=== PATIENT | male | born 2000 | race Hispanic/Latino ===

== ENCOUNTER 2022-04-03 02:12 | Inpatient (IN) | payer SELFPAY ==
[2022-04-03] MEDS ORDERED: ONDANSETRON 4 MG/2 ML VIAL ONE ×2 (03:09→18:10)
[2022-04-03] MEDS ORDERED: ACETAMINOPHEN 325 MG TABLET ONE (03:09)
[2022-04-03] MEDS ORDERED: MORPHINE 4 MG/ML SYR ONE (03:09)
[2022-04-03] MEDS ORDERED: NA CHLORIDE 0.9% 2,000 ML ONE (03:09)
[2022-04-03 03:10] LABS: Absolute Lymphocytes (CBC) 0.5 K/uL (0.7-4.9); Hematocrit 45.6 % (39.6-49.0); Lymphocytes % 3.8 % (15.3-44.8); MCV 89.4 fL (80-100); MPV 7.6 fL (7.6-11.3)
[2022-04-03] MEDS ORDERED: PIPERACIL/TAZO 3.375 GM VIAL IV ONE (03:10)
[2022-04-03] MEDS ORDERED: NA CHLORIDE 0.9% 100 ML IV ONE (03:10)
[2022-04-03] MEDS ORDERED: FAMOTIDINE 20 MG/2 ML VIAL IV ONE (03:10)
[2022-04-03 03:23] LABS: Urine Blood 1+ (Negative); Urine Glucose Negative (Negative); Urine Protein 2+ (Negative); Urine Specific Gravity 1.015 (1.005-1.030); Urine pH 6.5 (5.0-7.0)
[2022-04-03 03:27] LABS: Albumin 3.6 g/dL (3.4-5.0); Bilirubin Total 1.9 mg/dL (0.2-1.0); Potassium 3.4 mmol/L (3.5-5.1); Protein, Total 7.6 g/dL (6.4-8.2)
[2022-04-03 03:51] LABS: Urine Bacteria <20 /HPF (<20)
[2022-04-03 03:55] LABS: SARS-CoV-2 Antigen Rapid Res Negative (Negative)
--- NOTE | 2022-04-03 04:39 | ER ---
Nurse's Notes [facility] Name: Vickey Corley Age: 21 yrs Sex: Male : 2000 Arrival Date: 04/03/2022 Time: 02:15 Bed 15 Private MD: Diagnosis: Fever, unspecified;Acute appendicitis with generalized peritonitis;Abdominal pain, Generalized Presentation: 04/03 02:50 Chief complaint: Friend and/or Co-Worker states: He started having abdominal pain on jb4 the . It has progressively gotten worse. He started having diarrhea yesterday and now he is saying it is hurts to walk or move. Coronavirus screen: At this time, the client does not indicate any symptoms associated with coronavirus-19. Ebola Screen: No symptoms or risks identified at this time. Initial Sepsis Screen: Does the patient meet any 2 criteria? RR > 20 per min. HR > 90 bpm. Yes Does the patient have a suspected source of infection? Yes: Acute abdominal pain If YES to both, name of provider notified: Marquez Ruff MD Risk Assessment: Do you want to hurt yourself or someone else? Patient reports no desire to harm self or others. Onset of symptoms was March 26, 2022. Transition of care: patient was not received from another setting of care. 02:50 Method Of Arrival: Ambulatory jb4 02:50 Acuity: MAIA 2 jb4 Historical: - Allergies: 02:52 No Known Allergies; jb4 - Home Meds: 02:52 None [Active]; jb4 - PMHx: 02:52 None; jb4 - PSHx: 02:52 None; jb4 - Immunization history:: Adult Immunizations up to date, Client reports having NOT received the Covid vaccine. - Social history:: Smoking status: Patient denies any tobacco usage or history of. Patient/guardian denies using alcohol, street drugs. - Family history:: not pertinent. Screenin:[address] [facility] ED Fall Risk Assessment (Adult) History of falling in the last 3 months, jb4 including since admission No falls in past 3 months (0 pts) Confusion or Disorientation No (0 pts) Intoxicated or Sedated No (0 pts) Impaired Gait No (0 pts) Mobility Assist Device Used No (0 pt) Altered Elimination No (0 pt) Score/Fall Risk Level 0 - 2 = Low Risk Oriented to surroundings, Maintained a safe environment. Abuse screen: Denies threats or abuse. Nutritional screening: No deficits noted. Tuberculosis screening: No symptoms or risk factors identified. Assessment: 02:55 Reassessment: ED physician denies need for cultures at this time. jb4 02:55 General: Appears in no apparent distress. uncomfortable, Behavior is calm, cooperative, jb4 appropriate for age. Pain: Complains of pain in right lower quadrant Pain does not radiate. Pain currently is 10 out of 10 on a pain scale. Neuro: Level of Consciousness is awake, alert, obeys commands, Oriented to person, place, time, situation. Cardiovascular: Patient's skin is warm and dry. Respiratory: Airway is patent Respiratory effort is even, labored, Respiratory pattern is symmetrical, tachypnea. GI: Abdomen is flat, distended, Bowel sounds present X 4 quads. Abd is soft and non tender in right upper quadrant and left upper quadrant Abd is soft in right lower quadrant and left lower quadrant Abdomen is tender to palpation in right lower quadrant and left lower quadrant. 02:55 : No signs and/or symptoms were reported regarding the genitourinary system. EENT: No jb4 signs and/or symptoms were reported regarding the EENT system. Derm: Skin is intact, Skin is pink, warm \T\ dry. Musculoskeletal: Circulation, motion, and sensation intact. Range of motion: intact in all extremities. 04:01 Reassessment: Patient appears in no apparent distress at this time. Patient and/or jb4 family updated on plan of care and expected duration. Pain level reassessed. Patient is alert, oriented x 3, equal unlabored respirations, skin warm/dry/pink. 05:00 Reassessment: Patient appears in no apparent distress at this time. Patient and/or jb4 family updated on plan of care and expected duration. Pain level reassessed. Patient is alert, oriented x 3, equal unlabored respirations, skin warm/dry/pink. Vital Signs: 02:50 BP 122 / 82; Pulse 126; Resp 32; Temp 100.6(O); Pulse Ox 97% on R/A; Weight 77 kg (M); jb4 Height 5 ft. 6 in. (170 cm) (R); Pain 8/10; 04:01 BP 117 / 74; Pulse 113; Resp 22; Temp 99.5(O); Pulse Ox 97% on R/A; jb4 05:00 BP 105 / 63; Pulse 102; Resp 19; Temp 99.7(TE); Pulse Ox 98% on R/A; jb4 02:50 Body Mass Index 26.64 (77.00 kg, 170 cm) jb4 ED Course: 02:15 Patient arrived in ED. ja2 02:17 Marquez Ruff MD is Attending Physician. [facility] 02:52 Triage completed. jb4 02:52 Dima Awad, RN is Primary Nurse. jb4 02:52 Arm band placed on right wrist. jb4 02:55 Patient has correct armband on for positive identification. Placed in gown. Bed in low jb4 position. Call light in reach. Side rails up X 1. Client placed on continuous cardiac and pulse oximetry monitoring. NIBP monitoring applied. satellite project site monitor on. 03:00 Initial lab(s) drawn, by nc, sent to lab. Inserted saline lock: 20 gauge in right jb4 antecubital area, using aseptic technique. Blood collected. 03:11 Lipase Sent. jb4 03:11 CMP Sent. jb4 03:11 CBC with Diff Sent. jb4 03:30 SARS RAPID Sent. jb4 03:30 Urine Microscopic Only Sent. jb4 03:40 Chest Single View XRAY In Process Unspecified. EDMS 04:03 CT Abd/Pelvis - IV Contrast Only In Process Unspecified. EDMS 04:37 Jeovanny Lynn MD is Hospitalizing Provider. [facility] 05:05 No provider procedures requiring assistance completed. Patient admitted, IV remains in jb4 place. Administered Medications: 03:18 Drug: Tylenol 650 mg Route: PO; jb4 04:50 Follow up: Response: No adverse reaction; Marked relief of symptoms; Temperature is jb4 decreased 03:30 Drug: NS 0.9% 1000 ml Route: IV; Rate: 1 bolus; Site: right antecubital; jb4 04:50 Follow up: Response: No adverse reaction; IV Status: Completed infusion; IV Intake: jb4 1000ml 03:30 Drug: Pepcid (famotidine) 20 mg Route: IVP; Site: right antecubital; jb4 04:00 Follow up: Response: No adverse reaction jb4 03:30 Drug: Zofran (Ondansetron) 4 mg Route: IVP; Site: right antecubital; jb4 04:00 Follow up: Response: No adverse reaction jb4 03:30 Drug: morphine 4 mg Route: IVP; Infused Over: 4 mins; Site: right antecubital; jb4 04:50 Follow up: Response: No adverse reaction; Marked relief of symptoms; Pain is decreased; jb4 RASS: Alert and Calm (0) 03:30 Drug: Zosyn (piperacillin-tazobactam) 3.375 grams Route: IVPB; Infused Over: 60 mins; jb4 Site: right antecubital; 04:50 Follow up: Response: No adverse reaction; IV Status: Completed infusion; IV Intake: jb4 100ml 04:46 Drug: NS 0.9% 1000 ml Route: IV; Rate: 1 bolus; Site: right antecubital; jb4 05:07 Follow up: Response: No adverse reaction; IV Status: Infusion continued upon admission jb4 04:56 Drug: NS 0.9% with KCl 20 mEq/L 1000 ml Route: IV; Rate: 125 ml/hr; Site: right jb4 antecubital; 05:07 Follow up: Response: No adverse reaction; IV Status: Infusion continued upon admission jb4 Medication: 02:55 VIS not applicable for this client. jb4 Intake: 04:50 IV: 100ml; Total: 100ml. jb4 04:50 IV: 1000ml; Total: 1100ml. jb4 Outcome: 04:38 Decision to Hospitalize by Provider. yvan 05:05 Admitted to Med/surg accompanied by tech, via wheelchair, room 203, with chart, Report jb4 called to CLEVE Cortez 05:05 Condition: stable 05:05 Discharge instructions given to patient, Instructed on the need for admit, Demonstrated understanding of instructions. 05:19 Patient left the ED. jb4 Signatures: Dispatcher [employer] EDMarquez Bautista MD MD cha Bryson, James, RN RN jb4 Caren Montero Corrections: (The following items were deleted from the chart) 05:04 05:00 BP 105 / 63; Pulse 102bpm; Resp 19bpm; Pulse Ox 98% RA; jb4 jb4
--- NOTE | 2022-04-03 04:39 | EDPHYS ---
Physician Documentation [facility] Name: Vickey Corley Age: 21 yrs Sex: Male : 2000 Arrival Date: 04/03/2022 Time: 02:15 Bed 15 Private MD: ED Physician Marquez Ruff HPI: 04/03 02:47 This 21 yrs old Male presents to ER via Unassigned with complaints of yvan Abdominal Pain. 02:47 The patient presents with abdominal pain in the upper abdomen, in the lower abdomen, yvan abdominal distention in the upper abdomen, in the lower abdomen. Onset: The symptoms/episode began/occurred 8 hour(s) ago. The symptoms do not radiate. Associated signs and symptoms: Pertinent positives: nausea, vomiting. The symptoms are described as constant, steady. Modifying factors: The symptoms are alleviated by nothing, remaining still, the symptoms are aggravated by movement, pressure. Severity of pain: At its worst the pain was moderate in the emergency department the pain is actually worse moderately. The patient has not experienced similar symptoms in the past. Historical: - Allergies: 02:52 No Known Allergies; jb4 - Home Meds: 02:52 None [Active]; jb4 - PMHx: 02:52 None; jb4 - PSHx: 02:52 None; jb4 - Immunization history:: Adult Immunizations up to date, Client reports having NOT received the Covid vaccine. - Social history:: Smoking status: Patient denies any tobacco usage or history of. Patient/guardian denies using alcohol, street drugs. - Family history:: not pertinent. ROS: 02:47 Constitutional: Negative for fever, chills, and weight loss, Eyes: Negative for injury, yvan pain, redness, and discharge, ENT: Negative for injury, pain, and discharge, Neck: Negative for injury, pain, and swelling, Cardiovascular: Negative for chest pain, palpitations, and edema, Respiratory: Negative for shortness of breath, cough, wheezing, and pleuritic chest pain, Back: Negative for injury and pain, : Negative for injury, bleeding, discharge, and swelling, MS/Extremity: Negative for injury and deformity, Skin: Negative for injury, rash, and discoloration, Neuro: Negative for headache, weakness, numbness, tingling, and seizure, Psych: Negative for depression, anxiety, suicide ideation, homicidal ideation, and hallucinations, Allergy/Immunology: Negative for hives, rash, and allergies, Endocrine: Negative for neck swelling, polydipsia, polyuria, polyphagia, and marked weight changes. 02:47 Abdomen/GI: Positive for abdominal pain, of the right upper quadrant, left upper quadrant, right lower quadrant and left lower quadrant. Exam: 02:47 Constitutional: This is a well developed, well nourished patient who is awake, alert, yvan and in no acute distress. Head/Face: Normocephalic, atraumatic. Eyes: Pupils equal round and reactive to light, extra-ocular motions intact. Lids and lashes normal. Conjunctiva and sclera are non-icteric and not injected. Cornea within normal limits. Periorbital areas with no swelling, redness, or edema. ENT: Nares patent. No nasal discharge, no septal abnormalities noted. Tympanic membranes are normal and external auditory canals are clear. Oropharynx with no redness, swelling, or masses, exudates, or evidence of obstruction, uvula midline. Mucous membranes moist. Neck: Trachea midline, no thyromegaly or masses palpated, and no cervical lymphadenopathy. Supple, full range of motion without nuchal rigidity, or vertebral point tenderness. No Meningismus. Chest/axilla: Normal chest wall appearance and motion. Nontender with no deformity. No lesions are appreciated. Cardiovascular: Regular rate and rhythm with a normal S1 and S2. No gallops, murmurs, or rubs. Normal PMI, no JVD. No pulse deficits. Respiratory: Lungs have equal breath sounds bilaterally, clear to auscultation and percussion. No rales, rhonchi or wheezes noted. No increased work of breathing, no retractions or nasal flaring. Back: No spinal tenderness. No costovertebral tenderness. Full range of motion. Male : Normal genitalia with no discharge or lesions. Skin: Warm, dry with normal turgor. Normal color with no rashes, no lesions, and no evidence of cellulitis. MS/ Extremity: Pulses equal, no cyanosis. Neurovascular intact. Full, normal range of motion. Neuro: Awake and alert, GCS 15, oriented to person, place, time, and situation. Cranial nerves II-XII grossly intact. Motor strength 5/5 in all extremities. Sensory grossly intact. Cerebellar exam normal. Normal gait. Psych: Awake, alert, with orientation to person, place and time. Behavior, mood, and affect are within normal limits. 02:47 Abdomen/GI: Inspection: abdomen appears normal, Bowel sounds: normal, Palpation: moderate abdominal tenderness, in all quadrants, Liver: no appreciated palpable abnormalities, Hernia: not appreciated. 03:28 ECG was reviewed by the Attending Physician. [facility] Vital Signs: 02:50 BP 122 / 82; Pulse 126; Resp 32; Temp 100.6(O); Pulse Ox 97% on R/A; Weight 77 kg (M); jb4 Height 5 ft. 6 in. (170 cm) (R); Pain 8/10; 04:01 BP 117 / 74; Pulse 113; Resp 22; Temp 99.5(O); Pulse Ox 97% on R/A; jb4 05:00 BP 105 / 63; Pulse 102; Resp 19; Temp 99.7(TE); Pulse Ox 98% on R/A; jb4 02:50 Body Mass Index 26.64 (77.00 kg, 170 cm) jb4 MDM: 02:18 Patient medically screened. [facility] 02:52 Differential diagnosis: appendicitis, bowel obstruction, cholecystitis, Cholelithiasis, yvan diverticulitis, gastritis, non-specific abd pain, pancreatitis, Peptic Ulcer Disease, Peritonitis, Pyelonephritis, urinary tract infection. Data reviewed: vital signs, nurses notes, lab test result(s), radiologic studies, CT scan, plain films. Data interpreted: quality assurance monitor body: rate is 126 beats/min, rhythm is regular, Pulse oximetry: on room air is 97 %. Test interpretation: by ED physician or midlevel provider: plain radiologic studies. Counseling: I had a detailed discussion with the patient and/or guardian regarding: the historical points, exam findings, and any diagnostic results supporting the discharge/admit diagnosis, lab results, radiology results. 04/03 02:47 Order name: CBC with Diff; Complete Time: 03:24 [facility] 04/03 02:47 Order name: CMP; Complete Time: 03:45 [facility] 04/03 02:47 Order name: Lipase; Complete Time: 03:45 [facility] 04/03 02:47 Order name: Urine Microscopic Only; Complete Time: 04:16 [facility] 04/03 02:54 Order name: SARS RAPID; Complete Time: 04:16 [facility] 04/03 03:23 Order name: Urine Dipstick-Ancillary; Complete Time: 03:24 EDMS 04/03 02:47 Order name: CT Abd/Pelvis - IV Contrast Only [facility] 04/03 02:54 Order name: Chest Single View XRAY [facility] 04/03 04:47 Order name: Urine Culture [facility] 04/03 02:47 Order name: IV Saline Lock; Complete Time: 03:11 [facility] 04/03 02:47 Order name: Labs collected and sent; Complete Time: 03:11 [facility] 04/03 02:47 Order name: Urine Dipstick-Ancillary (obtain specimen); Complete Time: 03:51 [facility] 04/03 02:54 Order name: EKG; Complete Time: 02:54 [facility] 04/03 02:54 Order name: EKG - Nurse/Tech; Complete Time: 03:18 [facility] 04/03 04:42 Order name: NPO; Complete Time: 04:46 sb4 EC:28 Rate is 125 beats/min. Rhythm is regular. QRS [place] is Normal. MI interval is normal. [facility] QRS interval is normal. QT interval is normal. No Q waves. T waves are Normal. No ST changes noted. Clinical impression: Sinus tachycardia and No evidence of ischemia. Interpreted by me. Reviewed by me. Administered Medications: 03:18 Drug: Tylenol 650 mg Route: PO; jb4 04:50 Follow up: Response: No adverse reaction; Marked relief of symptoms; Temperature is jb4 decreased 03:30 Drug: NS 0.9% 1000 ml Route: IV; Rate: 1 bolus; Site: right antecubital; jb4 04:50 Follow up: Response: No adverse reaction; IV Status: Completed infusion; IV Intake: jb4 1000ml 03:30 Drug: Pepcid (famotidine) 20 mg Route: IVP; Site: right antecubital; jb4 04:00 Follow up: Response: No adverse reaction jb4 03:30 Drug: Zofran (Ondansetron) 4 mg Route: IVP; Site: right antecubital; jb4 04:00 Follow up: Response: No adverse reaction jb4 03:30 Drug: morphine 4 mg Route: IVP; Infused Over: 4 mins; Site: right antecubital; jb4 04:50 Follow up: Response: No adverse reaction; Marked relief of symptoms; Pain is decreased; jb4 RASS: Alert and Calm (0) 03:30 Drug: Zosyn (piperacillin-tazobactam) 3.375 grams Route: IVPB; Infused Over: 60 mins; jb4 Site: right antecubital; 04:50 Follow up: Response: No adverse reaction; IV Status: Completed infusion; IV Intake: jb4 100ml 04:46 Drug: NS 0.9% 1000 ml Route: IV; Rate: 1 bolus; Site: right antecubital; jb4 05:07 Follow up: Response: No adverse reaction; IV Status: Infusion continued upon admission jb4 04:56 Drug: NS 0.9% with KCl 20 mEq/L 1000 ml Route: IV; Rate: 125 ml/hr; Site: right jb4 antecubital; 05:07 Follow up: Response: No adverse reaction; IV Status: Infusion continued upon admission jb4 Disposition Summary: 04/03/22 04:38 Hospitalization Ordered Hospitalization Status: Observation yvan Provider: Jeovanny Lynn cha Location: Telemetry/MedSurg (observation) yvan Condition: Fair yvan Problem: new yvan Symptoms: have improved yvan Bed/Room Type: Standard yvan Room Assignment: 203(04/03/22 04:46) mw Diagnosis - Fever, unspecified yvan - Acute appendicitis with generalized peritonitis yvan - Abdominal pain, Generalized yvan Forms: - Medication Reconciliation Form yvan - SBAR form yvan Signatures: Dispatcher [employer] EDNallely Mejia RN RN Marquez Carlin MD MD cha Bryson, James, RN RN jb4 Katy Willoughby PA-C PA-C sb4 Corrections: (The following items were deleted from the chart) 04:46 04:38 yvan mw
[2022-04-03] MEDS ORDERED: NS KCL 20MEQ 1,000 ML IV ONE (04:55)
[2022-04-03] MEDS ORDERED: ACETAMINOPHEN 325 MG TABLET PO PRN (05:25)
[2022-04-03] MEDS ORDERED: ONDANSETRON 4 MG/2 ML VIAL IV PRN (05:25)
[2022-04-03] MEDS: D5 0.45 NS 1,000 ML IV SCH ×3 (05:55→21:25)
[2022-04-03 06:36] VITALS: BMI 27.3
[2022-04-03] MEDS ORDERED: INFLUENZA VACCINE (for 6+ mo) 0.5 ML DOSE IMVAC ONE (08:00)
[2022-04-03 10:07] LABS: Urine Bacteria <20 /HPF (<20); Urine Bilirubin NEGATIVE (Negative); Urine Blood Negative (Negative); Urine Clarity Clear (Clear); Urine Color Yellow (Yellow); Urine Glucose NEGATIVE (Negative); Urine Mucus Slight /HPF (None Seen); Urine Protein TRACE (Negative); Urine RBC <5 /HPF (None Seen); Urine Urobilinogen 1+ (Normal)
[2022-04-03] MEDS: PIPER TAZO 3.375 GM in NA CHLORIDE 0.9% 100 ML IV SCH ×2 (10:33→18:16)
[2022-04-03] MEDS: FAMOTIDINE 20 MG/2 ML VIAL IV SCH ×2 (10:34→20:47)
[2022-04-03] MEDS: MORPHINE 4 MG/ML SYR IV PRN (10:42)
[2022-04-03 10:43] LABS: Specific Gravity > 1.030 (1.005-1.030)
[2022-04-03] MEDS ORDERED: Ringers Lactate 1,000 ML IV ONE ×2 (17:19→19:19)
[2022-04-03] MEDS ORDERED: FENTANYL CITR 100 MCG/2 ML ONE (18:08)
[2022-04-03] MEDS ORDERED: MIDAZOLAM HCL 2 MG/2 ML INJ ONE (18:08)
[2022-04-03] MEDS ORDERED: LIDOCAINE 1% MPF 5 ML VIAL ONE (18:08)
[2022-04-03] MEDS ORDERED: dexAMETHasone 4 MG/ML VIAL ONE (18:08)
[2022-04-03] MEDS ORDERED: propofoL 200 MG/20 ML VIAL IV ONE (18:08)
[2022-04-03] MEDS ORDERED: GLYCOPYRROLATE 0.2 MG/ML SYR ONE (18:09)
[2022-04-03] MEDS ORDERED: KETOROLAC 30 MG/ML INJ ONE (18:10)
[2022-04-03] MEDS ORDERED: NEOSTIGMINE 1 MG/ML -10 ML VIAL ONE (18:10)
[2022-04-03] MEDS ORDERED: ROCURONIUM 50 MG/5 ML VIAL IV ONE (18:15)
--- NOTE | 2022-04-03 19:17 | P.BOP ---
Preoperative diagnosis: acute appendicitis Postoperative diagnosis: acute suppurative appendicitis Primary procedure: Laparoscopic appendectomy Estimated blood loss: <10cc Specimen: donita Findings: as above Anesthesia: General Drain(s): LIZETH drain Transferred to: Recovery Room Condition: Good
[2022-04-03] MEDS ORDERED: HYDROCODONE/APAP 5/325 MG TAB PO PRN (19:19)
[2022-04-04] MEDS: PIPER TAZO 3.375 GM in NA CHLORIDE 0.9% 100 ML IV SCH ×3 (00:22→23:00)
--- NOTE | 2022-04-04 00:23 | OP ---
Date of Procedure: 04/03/2022 Surgeon: Jeovanny Lynn MD Preoperative Diagnosis: Acute appendicitis. Postoperative Diagnosis: Acute suppurative appendicitis. Procedure: Laparoscopic appendectomy. Estimated Blood Loss: Less than 10 cc. Anesthesia: General plus local. Drains: LIZETH #10. Indications: This is the case of a 21-year-old patient, who comes to us with acute appendicitis. Th e benefits, alternatives, and risks of laparoscopic possible open appendectomy fully explained which include, but not limited to infection, bleeding, damage to adjacent structures, anesthesia complicati on, [place], and even . He also understood this may not relieve symptoms. He might need more than o ne surgical intervention. He understood, signed a consent. Procedure In Detail: Patient was brought to the operating room, placed in supine position. Anesthes ia was done without complication. Abdominal area was prepped and draped in sterile fashion. Marcain e 0.5% was injected for local anesthetic, followed by sharp incision of the skin in the infraumbilica l region. Incision was carried down to fascia, which was opened under direct vision. Peritoneum was encountered opened under direct vision. Vicryl #1 placed inside the fascia. Gloria trocar was care fully introduced. Pneumoperitoneum was obtained. I placed 2 more trocars, 5 mm each one of them, 1 in the suprapubic area, another one in the left lower quadrant under the same technique which consist ed of local anesthetic, sharp incision of the skin, and introduction of the trocars under direct visi on. This allowed me to visualize the area of appendix shows the patient to have a suppurative append icitis. The base of the appendix seems to be spared from the disease. So, we transected the base of the appendix with Endo-RERE 45 mm nonvascular and then we transected the mesoappendix with an Endo-GI A 45 mm vascular. Appendix removed from abdominal cavity using EndoCatch through the umbilical incis ion. The area was inspected once again. Due to the suppurative condition of this appendix, a left J P drain coming out through 1 of the openings of the trocar site. This LIZETH drain was secured in place with 3-0 nylon. Patient tolerated the procedure well. Patient on his way to recovery in stable cond ition. HM/MODL Voice ID: [id number] Report ID: [id number]
--- NOTE | 2022-04-04 02:18 | HP ---
Date of Admission: 04/03/2022 Diagnosis: Acute appendicitis. History Of Present Illness: This is the case of a 21-year-old patient who comes to the ER complainin g of abdominal pain since yesterday. Came this morning since it was not getting better, who has rece ived imaging and blood work and found to have acute appendicitis, so surgical evaluation was obtained . He denies any trauma, any dysuria, any hematuria, hematochezia, or melena. No recent traveling ou t of the country. No family member sick at home. Review of Systems: Ten points otherwise unremarkable. Past Medical History: None. Allergies: NONE. Past Surgical History: None. Social History: He does not smoke. He does not drink alcohol. Review of Systems: As above. Physical Examination: General: The patient is awake, alert. HEENT: Pupils are equal and reactive. Anicteric. Neck: Supple. Chest: Clear. Heart: S1, S2. Abdomen: Right lower quadrant tenderness with Rovsing and psoas signs positive. Genitalia: Deferred. Rectal: Deferred. Extremities: Good capillary refill. Neuro: Cranial nerves 2 through 12 grossly within normal limits. Laboratory Data: Blood work shows WBC count of 12, with hemoglobin of 15, potassium 3.4, creatinine is 0.8, total bilirubin of 1.9. UA shows a nitrite negative. CAT scan of the abdomen and pelvis leonel wing acute appendicitis. Assessment: This is a 21-year-old patient with acute appendicitis. Emergent laparoscopy possible op en appendectomy explained to the patient with benefits, alternatives, and risks including, but not li mited to infection, bleeding, damage to adjacent structures, anesthesia complications, abscess, [place], a nd even . He also understands this may not relieve the symptoms. He might need more than one s urgical intervention. He will sign a consent. MIGUEL/AALIYAH Voice ID: [id number]
[2022-04-04 03:44] LABS: Absolute Lymphocytes (CBC) 0.4 K/uL (0.7-4.9); Hematocrit 39.3 % (39.6-49.0); Lymphocytes % 3.6 % (15.3-44.8); MCV 89.2 fL (80-100); MPV 7.6 fL (7.6-11.3)
[2022-04-04 03:55] LABS: Albumin 2.7 g/dL (3.4-5.0); Bilirubin Direct 1.2 mg/dL (0-0.2); Bilirubin Total 2.1 mg/dL (0.2-1.0); Potassium 3.9 mmol/L (3.5-5.1); Protein, Total 6.6 g/dL (6.4-8.2)
[2022-04-04] MEDS: D5 0.45 NS 1,000 ML IV SCH ×3 (05:25→21:25)
[2022-04-04] MEDS: FAMOTIDINE 20 MG/2 ML VIAL IV SCH ×2 (08:03→22:58)
--- NOTE | 2022-04-04 16:04 | PN ---
Diagnosis: Status post suppurative appendicitis. Subjective: The patient is doing well. Still with some fevers and also not able to tolerate his t yet and requiring IV pain medications. Objective: Chest: Clear. Abdomen: Soft and depressible. LIZETH serosanguineous. Plan: Ambulation, incentive spirometry. If he tolerates diet by tomorrow and he is afebrile, we george l most likely send him home with p.o. antibiotics once again obtaining his clinical improvement. MIGUEL/AALIYAH Voice ID: [id number] Report ID: [id number]
--- NOTE | 2022-04-04 19:07 | EKG ---
Test Date: 2022-04-03 Test Time: 03:13:23 Lead Cook: RV MEASUREMENT RESULTS: Intervals: Rate: 125 MI: 126 QRSD: 88 QT: 304 QTc: 438 [place]: P: 13 MI: 126 QRS: 114 T: 41 INTERPRETIVE STATEMENTS: Sinus tachycardia Right axis deviation Abnormal ECG No previous ECG available for comparison Electronically Signed On 04-04-22 19:06:37 [employer] by Gregg Conner
[2022-04-05] MEDS: PIPER TAZO 3.375 GM in NA CHLORIDE 0.9% 100 ML IV SCH ×3 (01:00→16:28)
[2022-04-05] MEDS: D5 0.45 NS 1,000 ML IV SCH ×3 (05:34→20:22)
[2022-04-05] MEDS: FAMOTIDINE 20 MG/2 ML VIAL IV SCH ×2 (08:19→20:21)
--- NOTE | 2022-04-05 11:41 | PN ---
Date of Progress Note: 04/05/2022 Diagnoses: History of acute appendicitis, suppurative appendicitis. Subjective: The patient is doing better, although is not able to tolerate diet yet. He is afebrile. No shortness of breath. No chest pain. No bowel movement yet. Objective: Chest: Clear. Abdomen: buggy ladle tender. LIZETH drain serosanguineous. Extremities: Good capillary refill. Laboratory Data: Blood work reviewed with the patient. Plan: He is still unable to tolerate diet, means he cannot take his medications by mouth, so we are going to have to once again slowly try today to ambulate and see if I can break that ileus, so he can start getting diet. Once he has diet and we can switch to p.o. antibiotics, then we will proceed to discharge him home. MIGUEL/AALIYAH Voice ID: [id number] Report ID: [id number]
[2022-04-05] MEDS ORDERED: INFLUENZA VACCINE (for 6+ mo) 0.5 ML DOSE IMVAC ONE (13:00)
--- NOTE | 2022-04-05 20:28 | RAD REPORT ---
EXAM DESCRIPTION: RAD - Chest Single View - 04/03/2022 3:39 am CLINICAL HISTORY: The patient is 21 years old and is Male; ABDOMINAL DISTENTION TECHNIQUE: Frontal view of the chest. COMPARISON: No relevant prior studies available. FINDINGS: Lungs: Unremarkable. No consolidation. Pleural space: Unremarkable. No pneumothorax. Heart: Unremarkable. Mediastinum: Unremarkable. Bones/joints: Unremarkable. IMPRESSION: No acute findings in the chest. Electronically signed by: Cortez Guerrier MD 04/03/2022 4:01 AM [employer] Due to temporary technical issues with the PACS/Fluency reporting system, reports are being signed by the in house radiologists without review as a courtesy to insure prompt reporting. The interpreting radiologist is fully responsible for the content of the report.
--- NOTE | 2022-04-05 20:31 | RAD REPORT ---
EXAM DESCRIPTION: CT - Abdomen Pelvis W Contrast - 04/03/2022 6:34 am ADDENDUM #1 THIS REPORT CONTAINS FINDINGS THAT MAY BE CRITICAL TO PATIENT CARE: Dr. Marquez Ruff stated they a re aware of the findings to Shay Bernard and declined a telephone conference with Dr. Cortez Carlson on 04/03/2022 4:36 AM TECHNICAL DIRECTOR. Electronically signed by: Cortez Guerrier MD 04/03/2022 6:23 AM TECHNICAL DIRECTOR End of Addendum EXAM DESCRIPTION: CT Abdomen and Pelvis With Intravenous Contrast CLINICAL HISTORY: The patient is 21 years old and is Male; Abdominal pain, acute, nonlocalized TECHNIQUE: Axial computed tomography images of the abdomen and pelvis with intravenous contrast. S agittal and coronal reformatted images were created and reviewed. This CT exam was performed using one or more of the following dose reduction techniques: automated exposure control, adjustment of t he mA and/or kV according to patient size, and/or use of iterative reconstruction technique. COMPARISON: No relevant prior studies available. FINDINGS: Lung bases: Unremarkable. No mass. No consolidation. ABDOMEN: Liver: Unremarkable. No mass. Gallbladder and bile ducts: Unremarkable. No calcified stones. No ductal dilation. Pancreas: Unremarkable. No mass. No ductal dilation. Spleen: Unremarkable. No splenomegaly. Adrenals: Unremarkable. No mass. Kidneys and ureters: Unremarkable. No solid mass. No hydronephrosis. Stomach and bowel: Unremarkable. No obstruction. No mucosal thickening. PELVIS: Appendix: Dilated thickened appendix with moderate periappendiceal stranding consistent with acu te appendicitis. No free air. No abscess. Bladder: Diffuse bladder wall thickening. Reproductive: Unremarkable as visualized. ABDOMEN and PELVIS: Intraperitoneal space: Small amount of free fluid in the dependent pelvis. Bones/joints: No acute fracture. No dislocation. Soft tissues: Unremarkable. Vasculature: Unremarkable. No abdominal aortic aneurysm. Lymph nodes: Unremarkable. No enlarged lymph nodes. IMPRESSION: 1. Dilated thickened appendix with moderate periappendiceal stranding consistent with acute appendicitis. No free air. No abscess. 2. Diffuse bladder wall thickening. Correlate with any concern for cystitis, chronic bladder outl et obstruction, or other infiltrative process. 3. Small amount of free fluid in the dependent pelvis. Electronically signed by: Cortez Guerrier MD 04/03/2022 4:36 AM TECHNICAL DIRECTOR Due to temporary technical issues with the PACS/Fluency reporting system, reports are being signed by the in house radiologists without review as a courtesy to insure prompt reporting. The interpreting radiologist is fully responsible for the content of the report.
[2022-04-06] MEDS: PIPER TAZO 3.375 GM in NA CHLORIDE 0.9% 100 ML IV SCH ×2 (01:45→08:33)
[2022-04-06] MEDS: D5 0.45 NS 1,000 ML IV SCH (01:45)
[2022-04-06] MEDS: MORPHINE 4 MG/ML SYR IV PRN (05:21)
[2022-04-06 05:55] VITALS: O2SAT 97
[2022-04-06] MEDS: FAMOTIDINE 20 MG/2 ML VIAL IV SCH (08:33)
[2022-04-06 12:32] VITALS: BP 113/63; TEMP 98.9
== END 2022-04-06 13:50 | disposition home or self-care (01) | DRG 342 ==
LOC: ER 02:12 → 2ND 04:41 → OBSVTOIN 19:20
PROVIDERS: ADMIT Surgery; ATTEND Surgery
PROC: 0DTJ4ZZ Resection of Appendix, Percutaneous Endoscopic Approach (ICD-10-PCS; principal; 2022-04-03 18:00)
DX: K35.80 Unspecified acute appendicitis (principal); K56.699 Other intestinal obstruction unspecified as to partial versus complete obstruction; Z28.310 Unvaccinated for COVID-19; Z20.822 Contact with and (suspected) exposure to COVID-19
CPT/HCPCS: 36415; 71045; 74177; 80048; 80053; 80076; 81001; 81003; 81015; 83690; 85025; 87811; 88304; 93005; 94010; 96365; 96375; 99285; G0378; J1100; J2001; J2250; J2405; J2543; J2704; J2710; J3010; J3480; J7030; J7120; J7799; Q9967

== ENCOUNTER 2022-04-10 11:41 | Emergency (ER) | payer SELFPAY ==
--- NOTE | 2022-04-10 12:04 | EDPHYS ---
Physician Documentation [facility] Name: Vickey Mao Age: 21 yrs Sex: Male : 2000 Arrival Date: 04/10/2022 Time: 11:42 Bed IW1 Private MD: ED Physician Donovan Hilton HPI: 04/10 11:46 This 21 yrs old Male presents to ER via Ambulatory with complaints of post op jmm check. 11:46 The patient presents with abdominal pain. Onset: The symptoms/episode began/occurred jmm gradually. The symptoms do not radiate. Is a 21-year-old male with no chronic medical conditions status post 1 week after laparoscopic appendectomy. Patient has no complaints, denies abdominal pain, denies vomiting, denies fever, denies drainage from his incision sites. Patient states he is here because he does not have insurance to follow-up with general surgery.. Historical: - Allergies: 12:02 No Known Allergies; vg1 - Home Meds: 12:02 None [Active]; vg1 - PMHx: 12:02 None; vg1 - PSHx: 12:02 Appendectomy; vg1 - Immunization history:: Client reports having NOT received the Covid vaccine. - Social history:: Smoking status: Patient denies any tobacco usage or history of. ROS: 11:46 Constitutional: Negative for fever, chills, and weight loss, Cardiovascular: Negative jmm for chest pain, palpitations, and edema, Respiratory: Negative for shortness of breath, cough, wheezing, and pleuritic chest pain, Abdomen/GI: Negative for abdominal pain, nausea, vomiting, diarrhea, and constipation. 11:46 All other systems are negative. Exam: 11:46 Constitutional: This is a well developed, well nourished patient who is awake, alert, jmm and in no acute distress. Head/Face: atraumatic. Eyes: EOMI, no conjunctival erythema appreciated ENT: Moist Mucus Membranes Neck: Trachea midline, Supple Chest/axilla: Normal chest wall appearance and motion. Cardiovascular: Regular rate and rhythm. No edema appreciated Respiratory: Normal respirations, no respiratory distress appreciated 11:46 Skin: General appearance color normal MS/ Extremity: Moves all extremities, no obvious deformities appreciated, no edema noted to the lower extremities Neuro: Awake and alert Psych: Behavior is normal, Mood is normal, Patient is cooperative and pleasant 11:46 Abdomen/GI: Inspection: abdomen appears normal, Palpation: soft, nontender, in all quadrants. Vital Signs: 12:02 BP 128 / 87; Pulse 105; Resp 14; Temp 98.6(O); Pulse Ox 98% ; Weight 74.3 kg; Height 5 vg1 ft. 6 in. (170 cm); Pain 0/10; 12:02 Body Mass Index 25.71 (74.30 kg, 170 cm) vg1 MDM: 11:46 Patient medically screened. rn 12:02 Data reviewed: vital signs, nurses notes. ED course: Social determinants of health. [facility] Administered Medications: No medications were administered Disposition: 17:56 Co-signature as Attending Physician, Donovan Hilton MD. rn Disposition Summary: 04/10/22 12:04 Discharge Ordered Location: Home [facility] Condition: Stable jm Diagnosis - Person with feared health complaint in whom no diagnosis is made jm Followup: jm - With: Private Physician - When: 2 - 3 days - Reason: Recheck today's complaints, Continuance of care, Re-evaluation by your physician Discharge Instructions: - Discharge Summary Sheet jm - Laparoscopic Appendectomy, Adult, Care After [facility] Forms: - Medication Reconciliation Form [facility] - Thank You Letter [facility] - Antibiotic Education [facility] - Prescription Opioid Use [facility] Signatures: Gil Zayas PA PA jmm Nieto, Roman, MD MD rn Aylin Knox RN RN vg1
--- NOTE | 2022-04-10 12:04 | ER ---
Nurse's Notes [facility] Name: Vickey Mao Age: 21 yrs Sex: Male : 2000 Arrival Date: 04/10/2022 Time: 11:42 Bed IW1 Private MD: Diagnosis: Person with feared health complaint in whom no diagnosis is made Presentation: 04/10 11:55 Chief complaint: Patient states: appendectomy on 04/03/[address] Lynn and vg1 was told to follow up. Coronavirus screen: Vaccine status: Patient reports being unvaccinated. Client denies travel out of the [place] in the last 14 days. Ebola Screen: Patient negative for fever greater than or equal to 101.5 degrees Fahrenheit, and additional compatible Ebola Virus Disease symptoms. 11:55 Method Of Arrival: Ambulatory vg1 11:59 Initial Sepsis Screen:. Risk Assessment: Do you want to hurt yourself or someone else? vg1 Patient reports no desire to harm self or others. Onset of symptoms was April 03, 2022. 11:59 Acuity: MAIA 4 vg1 12:02 Initial Sepsis Screen: Does the patient meet any 2 criteria? No. Patient's initial vg1 sepsis screen is negative. Does the patient have a suspected source of infection? No. Patient's initial sepsis screen is negative. Triage Assessment: 12:02 General: Appears in no apparent distress. comfortable, Behavior is calm, cooperative. vg1 Pain: Denies pain. Cardiovascular: Patient's skin is warm and dry. Respiratory: Airway is patent Respiratory effort is even, unlabored. Derm: Wound noted suprapubic area and left lower quadrant Wound is appears to have no redness or swelling of discoloration to site; pt denies pain. Historical: - Allergies: 12:02 No Known Allergies; vg1 - Home Meds: 12:02 None [Active]; vg1 - PMHx: 12:02 None; vg1 - PSHx: 12:02 Appendectomy; vg1 - Immunization history:: Client reports having NOT received the Covid vaccine. - Social history:: Smoking status: Patient denies any tobacco usage or history of. Screenin:40 [facility] ED Fall Risk Assessment (Adult) History of falling in the last 3 months, kc6 including since admission No falls in past 3 months (0 pts) Confusion or Disorientation No (0 pts) Intoxicated or Sedated No (0 pts) Impaired Gait No (0 pts) Mobility Assist Device Used No (0 pt) Altered Elimination No (0 pt) Score/Fall Risk Level 0 - 2 = Low Risk Oriented to surroundings, Maintained a safe environment, Educated pt \T\ family on fall prevention, incl call for assistance when getting out of bed, Hourly rounding (assess needs \T\ fall precautionary measures) done. Abuse screen: Denies threats or abuse. Denies injuries from another. Nutritional screening: No deficits noted. Tuberculosis screening: No symptoms or risk factors identified. Vital Signs: 12:02 BP 128 / 87; Pulse 105; Resp 14; Temp 98.6(O); Pulse Ox 98% ; Weight 74.3 kg; Height 5 vg1 ft. 6 in. (170 cm); Pain 0/10; 12:02 Body Mass Index 25.71 (74.30 kg, 170 cm) vg1 ED Course: 11:42 Patient arrived in ED. am2 11:46 Donovan Hilton MD is Attending Physician. rn 12:02 Gil Zayas PA is PHCP. [facility] 12:02 Triage completed. vg1 12:02 Arm band placed on. vg1 12:41 Patient has correct armband on for positive identification. Bed in low position. Call kc6 light in reach. Side rails up X 1. Adult w/ patient. 12:41 No provider procedures requiring assistance completed. Patient did not have IV access kc6 during this emergency room visit. Administered Medications: No medications were administered Medication: 12:41 VIS not applicable for this client. kc6 Outcome: 12:04 Discharge ordered by . [facility] 12:41 Discharged to home ambulatory, with friend. kc6 12:41 Condition: stable 12:41 Discharge instructions given to patient, Instructed on discharge instructions, follow up and referral plans. Demonstrated understanding of instructions, follow-up care. 12:41 Patient left the ED. kc6 Signatures: Gil Zayas PA PA [facility] Donovan Hilton MD MD rn Moreno, Amanda am2 Aylin Knox RN RN 1 Pam Velázquez RN RN kc6
[2022-04-10 12:46] VITALS: BP 128/87; TEMP 98.6; O2SAT 98
== END 2022-04-10 12:41 | disposition home or self-care (01) ==
LOC: ER 11:41
DX: Z71.1 Person with feared health complaint in whom no diagnosis is made (principal); Z98.890 Other specified postprocedural states
CPT/HCPCS: 99281

== ENCOUNTER 2023-03-16 22:54 | Emergency (ER) | payer SELFPAY ==
[2023-03-17 00:42] LABS: Specific Gravity 1.022 (1.005-1.030); Urine Bacteria None Seen /HPF (<20); Urine Bilirubin NEGATIVE (Negative); Urine Blood Negative (Negative); Urine Clarity Extremely Turbid (Clear); Urine Color Light-Orange (Yellow); Urine Glucose NEGATIVE (Negative); Urine Protein NEGATIVE (Negative); Urine RBC None Seen /HPF (None Seen); Urine Urobilinogen Normal (Normal)
--- NOTE | 2023-03-17 00:48 | EDPHYS ---
Physician Documentation [facility] Name: Vickey Mao Age: 22 yrs Sex: Male : 2000 Arrival Date: 03/16/2023 Time: 22:54 Bed IW1 Private MD: ED Physician Jonathon De La Rosa HPI: 03/16 23:52 This 22 yrs old Male presents to ER via Ambulatory with complaints of Low Back kb Pain. 23:52 Patient is a 22-year-old male with no medical history who presents for right low back kb pain that started 2 days ago. Reports it is worsened by bending over. Denies any injury or trauma. Denies urinary symptoms. Denies flank pain, abdominal pain, nausea, vomiting, diarrhea, fever. Historical: - Allergies: 23:09 No Known Allergies; cm10 - PMHx: 23:09 None; cm10 - PSHx: 23:09 Appendectomy; cm10 - Immunization history:: Adult Immunizations unknown. - Social history:: Smoking status: Patient denies any tobacco usage or history of. ROS: 23:52 Constitutional: Negative for fever, chills, and weight loss, kb 23:52 Back: Positive for pain at rest, pain with movement, of the right low back, 23:52 All other systems are negative, kb Exam: 23:52 Constitutional: This is a well developed, well nourished patient who is awake, alert, kb and in no acute distress. Head/Face: Normocephalic, atraumatic. ENT: Moist Mucous membranes Cardiovascular: Regular rate Respiratory: Respirations even and unlabored. No increased work of breathing. Talking in full sentences Abdomen/GI: Soft, non-tender. No distention Skin: Warm, dry with normal turgor. Normal color. MS/ Extremity: Pulses equal, no cyanosis. Neurovascular intact. Full, normal range of motion. Neuro: Awake and alert, GCS 15, oriented to person, place, time, and situation. Moves all extremities. Normal gait. 23:52 Back: pain, that is mild, that is moderate, of the right low back, CVA tenderness, is absent, Vital Signs: 23:08 BP 148 / 90; Pulse 98; Resp 18; Temp 97.3; Pulse Ox 100% ; Weight 82.1 kg; Pain 6/10; cm10 03/17 01:00 BP 133 / 82; Pulse 90; Resp 17 S; Pulse Ox 100% on R/A; ha1 03/16 23:08 Pain Scale: Adult cm10 MDM: 03/16 23:03 Patient medically screened. kb 23:52 Differential diagnosis: strain, sciatica, UTI. Data reviewed: vital signs, nurses notes. 03/17 00:45 Test considered but Not performed: CT: CT stone considered, but urinalysis wnl, pt kb afebrile with no urinary complaints, n/v/d. Pain worse with movement. Counseling: I had a detailed discussion with the patient and/or guardian regarding the historical points, exam findings, and any diagnostic results supporting the discharge/admit diagnosis, lab results, the need for outpatient follow up, a family practitioner, to return to the emergency department if symptoms worsen or persist or if there are any questions or concerns that arise at home. 03/16 23:09 Order name: Urinalysis w/ reflexes; Complete Time: 00:45 kb Administered Medications: No medications were administered Disposition Summary: 03/17/23 00:47 Discharge Ordered Notes: Location: Home kb Condition: Stable kb Diagnosis - Low back pain kb Followup: kb - With: Emergency Department - When: As needed - Reason: Worsening of condition Followup: kb - With: Private Physician - When: 2 - 3 days - Reason: Recheck today's complaints, Continuance of care, Re-evaluation by your physician Discharge Instructions: - Discharge Summary Sheet kb - Musculoskeletal Pain kb Forms: - Medication Reconciliation Form kb - Thank You Letter kb - Antibiotic Education kb - Prescription Opioid Use kb - Patient Portal Instructions kb - Leadership Thank You Letter kb Prescriptions: - Diclofenac Sodium 75 mg Oral tablet, delayed release (enteric coated) - take 1 tablet ORAL route 2 times per day As needed; 30 tablet; Refills: 0, kb Product Selection Permitted Signatures: Dispatcher [employer] Tamanna Duran, Ashley Medina, RN RN cm10
--- NOTE | 2023-03-17 00:48 | ER ---
Nurse's Notes [facility] Name: Vickey Mao Age: 22 yrs Sex: Male : 2000 Arrival Date: 03/16/2023 Time: 22:54 Bed IW1 Private MD: Diagnosis: Low back pain Presentation: 03/16 23:08 Chief complaint: Patient states: right low back onset 2 days ago. Pt states that the cm10 pain is worse with movement. Coronavirus screen: Vaccine status: Patient reports being unvaccinated. Client denies travel out of the [place] in the last 14 days. Ebola Screen: Patient denies travel to an Ebola-affected area in the 21 days before illness onset. No symptoms or risks identified at this time. Initial Sepsis Screen: Does the patient meet any 2 criteria? No. Patient's initial sepsis screen is negative. Does the patient have a suspected source of infection? No. Patient's initial sepsis screen is negative. Risk Assessment: Do you want to hurt yourself or someone else? Patient reports no desire to harm self or others. Onset of symptoms was March 16, 2023. 23:08 Method Of Arrival: Ambulatory cm10 23:08 Acuity: MAIA 4 cm10 Triage Assessment: 23:47 General: Appears in no apparent distress. comfortable, Behavior is calm, cooperative. cm10 Pain: Complains of pain in right low back Pain does not radiate. Pain currently is 6 out of 10 on a pain scale. Pain began 2-3 days ago. Aggravated by repositioning. EENT: No deficits noted. No signs and/or symptoms were reported regarding the EENT system. Neuro: No deficits noted. Level of Consciousness is awake, alert, obeys commands, Oriented to person, place, time, situation. Cardiovascular: No deficits noted. Reports. Cardiovascular: Patient's skin is warm and dry. Respiratory: No deficits noted. Airway is patent Respiratory effort is even, unlabored, Respiratory pattern is regular, symmetrical. GI: No deficits noted. No signs and/or symptoms were reported involving the gastrointestinal system. : No deficits noted. No signs and/or symptoms were reported regarding the genitourinary system. Derm: No deficits noted. No signs and/or symptoms reported regarding the dermatologic system. Skin is intact, Skin is pink, warm \T\ dry. Musculoskeletal: No deficits noted. No signs and/or symptoms reported regarding the musculoskeletal system. Range of motion: intact in all extremities. Historical: - Allergies: 23:09 No Known Allergies; cm10 - PMHx: 23:09 None; cm10 - PSHx: 23:09 Appendectomy; cm10 - Immunization history:: Adult Immunizations unknown. - Social history:: Smoking status: Patient denies any tobacco usage or history of. Screenin:48 [facility] ED Fall Risk Assessment (Adult) History of falling in the last 3 months, cm10 including since admission No falls in past 3 months (0 pts) Confusion or Disorientation No (0 pts) Intoxicated or Sedated No (0 pts) Impaired Gait No (0 pts) Mobility Assist Device Used No (0 pt) Altered Elimination No (0 pt) Score/Fall Risk Level 0 - 2 = Low Risk Oriented to surroundings, Maintained a safe environment, Hourly rounding (assess needs \T\ fall precautionary measures) done. Abuse screen: Denies threats or abuse. Denies injuries from another. Nutritional screening: No deficits noted. Tuberculosis screening: No symptoms or risk factors identified. Assessment: 03/17 01:05 Reassessment: Patient and/or family updated on plan of care and expected duration. Pain ha1 level reassessed. Patient is alert, oriented x 3, equal unlabored respirations, skin warm/dry/pink. Vital Signs: 03/16 23:08 BP 148 / 90; Pulse 98; Resp 18; Temp 97.3; Pulse Ox 100% ; Weight 82.1 kg; Pain 6/10; cm10 03/17 01:00 BP 133 / 82; Pulse 90; Resp 17 S; Pulse Ox 100% on R/A; ha1 03/16 23:08 Pain Scale: Adult cm10 ED Course: 03/16 22:59 Patient arrived in ED. im 23:03 Tamanna Orellana FNP-C [facility]. kb 23:03 Jonathon De La Rosa MD is Attending Physician. kb 23:09 Triage completed. cm10 23:09 Arm band placed on Patient placed in waiting room. cm10 23:35 Urinalysis w/ reflexes Sent. cm10 23:48 Patient has correct armband on for positive identification. Provided Education on: ER cm10 process and procedures. . Cardiac monitoring not applicable on this patient. 23:48 No provider procedures requiring assistance completed. Patient did not have IV access cm10 during this emergency room visit. Administered Medications: No medications were administered Medication: 23:48 VIS not applicable for this client. cm10 Outcome: 03/17 00:47 Discharge ordered by . isela 01:06 Discharged to home ambulatory, with family, ha1 01:06 Condition: stable 01:06 Discharge instructions given to patient, family, Instructed on discharge instructions, follow up and referral plans. Demonstrated understanding of instructions, follow-up care, Prescriptions given X 1, 01:06 Patient left the ED. ha1 Signatures: Tamanna Orellana, STEFFANIEC CYNTHIA-Awilda Walker RN RN ha1 Baylee Fuentes Clarissa RN RN cm10
[2023-03-17 04:39] VITALS: BP 148/90; TEMP 97.3; O2SAT 100
== END 2023-03-17 01:06 | disposition home or self-care (01) ==
LOC: ER 22:54
DX: M54.50 Low back pain, unspecified (principal)
CPT/HCPCS: 81001; 99283

== ENCOUNTER → 2023-06-08 | Emergency (ER) | payer SELFPAY ==
[~2023-06-08] MED LIST: GABAPENTIN 300 MG CAP ONE; predniSONE 20 MG TAB ONE
--- NOTE | 2023-06-08 19:41 | EDPHYS ---
Physician Documentation [facility] Name: Vickey Mao Age: 23 yrs Sex: Male : 2000 Arrival Date: 06/08/2023 Time: 17:42 Bed 12 Private MD: ED Physician Donovan Hilton HPI: 06/07 18:44 This 23 yrs old Male presents to ER via Ambulatory with complaints of Low Back rn Pain, Leg Pain, Hip Pain. 18:44 The patient presents with pain that is acute. The symptoms are located in the low back. rn The pain radiates to the right leg. Onset: The symptoms/episode began/occurred 2 day(s) ago. Modifying factors: The patient symptoms are alleviated by nothing, the patient symptoms are aggravated by any movement. Severity of symptoms: At their worst the symptoms were moderate, in the emergency department the symptoms are unchanged. The patient has experienced similar episodes in the past. Patient reports right lower back pain that radiates down the right leg. Patient reports has had a pinched nerve in the past and this feels identical. Denies any new trauma. No abdominal pain no testicular pain. No weakness of lower extremities or bowel or bladder incontinence. Historical: - Allergies: 18:10 No Known Allergies; tl4 - Home Meds: 18:10 None [Active]; tl4 - PMHx: 18:10 None; tl4 - PSHx: 18:10 Appendectomy; tl4 - Immunization history:: Adult Immunizations unknown. - Social history:: Smoking status: Patient denies any tobacco usage or history of. - Family history:: not pertinent. - Hospitalizations: : No recent hospitalization is reported. ROS: 18:44 Constitutional: Negative for fever, chills, and weight loss, Cardiovascular: Negative rn for chest pain, palpitations, and edema, Respiratory: Negative for shortness of breath, cough, wheezing, and pleuritic chest pain, Abdomen/GI: Negative for abdominal pain, nausea, vomiting, diarrhea, and constipation, Back: Positive for back pain that radiates down right leg MS/Extremity: Negative for injury and deformity, Skin: Negative for injury, rash, and discoloration, Neuro: Positive for intermittent numbness and tingling of the right leg Exam: 18:44 Constitutional: This is a well developed, well nourished patient who is awake, alert, rn and in no acute distress. Ambulatory to room without difficulty or assistance Cardiovascular: Regular rate and rhythm. No pulse deficits. Abdomen/GI: Soft, nontender Back: No spinal tenderness. MS/ Extremity: Pulses equal, no cyanosis. Neurovascular intact. Full, normal range of motion. Equal circumference. Neuro: Awake and alert, GCS 15, oriented to person, place, time, and situation. Cranial nerves II-XII grossly intact. Motor strength 5/5 in all extremities. Sensory grossly intact. Cerebellar exam normal. Normal gait. Vital Signs: 18:08 BP 148 / 85; Pulse 95; Resp 18; Temp 98.2; Pulse Ox 100% ; Weight 72.12 kg; Pain 8/10; tl4 19:30 BP 135 / 80; Pulse 90; Resp 18 S; Temp 98; Pulse Ox 100% on R/A; ha1 18:08 Pain Scale: Adult tl4 MDM: 17:49 Patient medically screened. kb 19:40 Differential diagnosis: strain, sciatica, contusion, Herniated disc. Data reviewed: rn vital signs, nurses notes, and as a result, I will discharge patient. Counseling: I had a detailed discussion with the patient and/or guardian regarding the historical points, exam findings, and any diagnostic results supporting the discharge/admit diagnosis, the need for outpatient follow up, to return to the emergency department if symptoms worsen or persist or if there are any questions or concerns that arise at home. Special discussion: I discussed with the patient/guardian in detail that at this point there is no indication for admission to the hospital. It is understood, however, that if the symptoms persist or worsen the patient needs to return immediately for re-evaluation. Administered Medications: 19:30 Drug: Gabapentin PO 300 mg PO once Route: PO; ha1 20:05 Follow up: Response: No adverse reaction; Marked relief of symptoms ha1 19:30 Drug: predniSONE PO 60 mg PO once Route: PO; ha1 20:05 Follow up: Response: No adverse reaction; Marked relief of symptoms ha1 Disposition Summary: 06/08/23 19:40 Discharge Ordered Notes: Location: Home rn Problem: an acute exacerbation rn Symptoms: have improved rn Condition: Stable rn Diagnosis - Radiculopathy, lumbar region rn Followup: rn - With: Private Physician - When: As needed - Reason: Recheck today's complaints, Re-evaluation by your physician Discharge Instructions: - Discharge Summary Sheet rn - Lumbosacral Radiculopathy rn - Pinched Nerve rn Forms: - Medication Reconciliation Form rn - Thank You Letter rn - Antibiotic manager internship - Prescription Opioid Use rn - Patient Portal Instructions rn - Leadership Thank You Letter rn Prescriptions: - gabapentin 100 mg Oral capsule - take 1 capsule ORAL route every 8-12 hours As needed; 14 capsule; Refills: 0, rn Product Selection Permitted - Tramadol 50 mg Oral Tablet - take 1 tablet ORAL route every 8 hours as needed; 12 tablet; Refills: 0, rn Product Selection Permitted - Medrol (Estuardo) 4 mg Oral Tablets, Dose Pack - take 1 tablet ORAL route as directed - follow package instructions; 1 packet; rn Refills: 0, Product Selection Permitted Signatures: Tamanna Orellana, AVIONICS ELECTRICAL ENGINEER-C AVIONICS ELECTRICAL ENGINEER-Quiqueb Donovan Hilton MD MD rn Ayala, Heidy, RN RN ha1 Jalil Tavarez RN RN tl4
--- NOTE | 2023-06-08 19:41 | ER ---
Nurse's Notes [facility] Name: Vickey Mao Age: 23 yrs Sex: Male : 2000 Arrival Date: 06/08/2023 Time: 17:42 Bed 12 Private MD: Diagnosis: Radiculopathy, lumbar region Presentation: 06/07 18:08 Chief complaint: Patient states: Pt c/o right side sciatica pain x 4 days. Coronavirus tl4 screen: At this time, the client does not indicate any symptoms associated with coronavirus-19. Ebola Screen: No symptoms or risks identified at this time. Initial Sepsis Screen: Does the patient meet any 2 criteria? No. Patient's initial sepsis screen is negative. Does the patient have a suspected source of infection? No. Patient's initial sepsis screen is negative. Risk Assessment: Do you want to hurt yourself or someone else? Patient reports no desire to harm self or others. Onset of symptoms was June 03, 2023. 18:08 Method Of Arrival: Ambulatory tl4 18:08 Acuity: MAIA 4 tl4 Triage Assessment: 18:10 General: Appears in no apparent distress. Behavior is calm, cooperative. Pain: tl4 Complains of pain in pelvis and right leg. EENT: No deficits noted. No signs and/or symptoms were reported regarding the EENT system. Neuro: No deficits noted. Cardiovascular: No deficits noted. Respiratory: No deficits noted. GI: No deficits noted. No signs and/or symptoms were reported involving the gastrointestinal system. : No deficits noted. No signs and/or symptoms were reported regarding the genitourinary system. Derm: No deficits noted. No signs and/or symptoms reported regarding the dermatologic system. Musculoskeletal: Reports pain in right hip, right leg. Historical: - Allergies: 18:10 No Known Allergies; tl4 - Home Meds: 18:10 None [Active]; tl4 - PMHx: 18:10 None; tl4 - PSHx: 18:10 Appendectomy; tl4 - Immunization history:: Adult Immunizations unknown. - Social history:: Smoking status: Patient denies any tobacco usage or history of. - Family history:: not pertinent. - Hospitalizations: : No recent hospitalization is reported. Screenin:03 [facility] ED Fall Risk Assessment (Adult) History of falling in the last 3 months, ha1 including since admission No falls in past 3 months (0 pts) Confusion or Disorientation No (0 pts) Intoxicated or Sedated No (0 pts) Impaired Gait No (0 pts) Mobility Assist Device Used No (0 pt) Altered Elimination No (0 pt) Score/Fall Risk Level 0 - 2 = Low Risk Oriented to surroundings, Maintained a safe environment, Educated pt \T\ family on fall prevention, incl call for assistance when getting out of bed. Abuse screen: Denies threats or abuse. Denies injuries from another. Nutritional screening: No deficits noted. Tuberculosis screening: No symptoms or risk factors identified. Assessment: 19:10 General: Appears comfortable, Behavior is calm, cooperative. Pain: Complains of pain in ha1 back and left leg Pain currently is 5 out of 10 on a pain scale. Quality of pain is described as burning, throbbing, Pain began 2-3 days ago. Aggravated by exercise, increased activity. Neuro: Level of Consciousness is awake, alert, obeys commands, Oriented to person, place, time, situation. Cardiovascular: Patient's skin is warm and dry. Respiratory: Airway is patent Respiratory effort is even, unlabored, Respiratory pattern is regular, symmetrical. Musculoskeletal: Circulation, motion, and sensation intact. Reports pain in abdomen and left leg. 20:01 Reassessment: Patient and/or family updated on plan of care and expected duration. Pain ha1 level reassessed. Patient is alert, oriented x 3, equal unlabored respirations, skin warm/dry/pink. pain 3/10 Patient states feeling better. Patient states symptoms have improved. Vital Signs: 18:08 BP 148 / 85; Pulse 95; Resp 18; Temp 98.2; Pulse Ox 100% ; Weight 72.12 kg; Pain 8/10; tl4 19:30 BP 135 / 80; Pulse 90; Resp 18 S; Temp 98; Pulse Ox 100% on R/A; ha1 18:08 Pain Scale: Adult tl4 ED Course: 17:46 Patient arrived in ED. im 17:47 [facility]rellana FNP-C [facility]. kb 17:47 Donovan Hilton MD is Attending Physician. kb 18:10 Triage completed. tl4 18:11 Arm band placed on right wrist. tl4 19:10 Patient has correct armband on for positive identification. Placed in gown. Bed in low ha1 position. Call light in reach. Side rails up X 1. Adult w/ patient. 20:00 Provided Education on: follow up with pcp. ha1 20:03 No provider procedures requiring assistance completed. Patient did not have IV access ha1 during this emergency room visit. Administered Medications: 19:30 Drug: Gabapentin PO 300 mg PO once Route: PO; ha1 20:05 Follow up: Response: No adverse reaction; Marked relief of symptoms ha1 19:30 Drug: predniSONE PO 60 mg PO once Route: PO; ha1 20:05 Follow up: Response: No adverse reaction; Marked relief of symptoms ha1 Medication: 20:04 VIS not applicable for this client. ha1 Outcome: 19:40 Discharge ordered by . rn 20:04 Discharged to home ambulatory, ha1 20:04 Condition: stable 20:04 Discharge instructions given to patient, Instructed on discharge instructions, follow up and referral plans. medication usage, Demonstrated understanding of instructions, follow-up care, medications, Prescriptions given X 3, 20:05 Patient left the ED. ha1 Signatures: Tamanna Orellana, EMAIL MARKETER-C EMAIL MARKETER-Ckb Donovan Hilton MD MD rn Ayala, Heidy, RN RN ha1 Baylee Fuentes Toni RN RN tl4
[2023-06-08 20:22] VITALS: BP 135/80; TEMP 98; O2SAT 100
== END ==
LOC: ER 17:42
DX: M54.16 Radiculopathy, lumbar region (principal)
CPT/HCPCS: 99283; J7512

== ENCOUNTER 2023-09-01 17:01 | Emergency (ER) | payer SELFPAY ==
--- NOTE | 2023-09-01 19:48 | EDPHYS ---
Physician Documentation [facility] Name: Vickey Mao Age: 23 yrs Sex: Male : 2000 Arrival Date: 09/01/2023 Time: 17:01 Bed 11 Private MD: ED Physician Mark Ventura HPI: 08/31 20:16 This 23 yrs old Male presents to ER via Ambulatory with complaints of Ingrown sb4 toenail. 20:16 great left toenail ingrown for 1 month now. reports increasing pain, swelling, and sb4 discharge. no reported fevers, no medical history. Historical: - Allergies: 17:16 No Known Allergies; db - PSHx: 17:16 Appendectomy; db - Immunization history:: Adult Immunizations up to date. - Infectious Disease History:: Denies. - Social history:: Smoking status: Patient denies any tobacco usage or history of. ROS: 20:17 Constitutional: Negative for fever, chills, and weight loss, sb4 20:17 Skin: Positive for per HPI, Exam: 20:17 Constitutional: This is a well developed, well nourished patient who is awake, alert, sb4 and in no acute distress. Head/Face: Normocephalic, atraumatic. Eyes: Extra-ocular motions intact. Periorbital areas with no swelling, redness, or edema. ENT: Mucous membranes moist. 20:17 Skin: left great toenail ingrown on inner and outer border with mild purulence and minimal cellulitis. no abscess. Vital Signs: 17:14 BP 122 / 80; Pulse 72; Resp 16; Temp 98; Pulse Ox 100% ; db MDM: 17:17 Patient medically screened. sb4 20:17 Data reviewed: vital signs, nurses notes, and as a result, I will discharge patient. 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 ED course: discussed with patient that we are unable to remove ingrown toenails in the Ed as we do not have the proper tools but I can prescribe him antibiotics to reduce the infection but he needs to follow up with PCP or podiatry to have the nail removed. Administered Medications: No medications were administered Disposition Summary: 09/01/23 19:48 Discharge Ordered Notes: Location: Home sb4 Problem: an ongoing problem sb4 Symptoms: are unchanged sb4 Condition: Stable sb4 Diagnosis - ingrown toenail sb4 Followup: sb4 - With: Rush Choudhury DPM - When: 2 - 3 days - Reason: Recheck today's complaints, Re-evaluation by your physician Discharge Instructions: - Discharge Summary Sheet sb4 - Ingrown Toenail sb4 Forms: - Antibiotic Education sb4 - Patient Portal Instructions sb4 - Leadership Thank You Letter sb4 Prescriptions: - Cephalexin 500 mg Oral Capsule - take 1 capsule ORAL route every 12 hours for 10 days; 20 capsule; Refills: 0, sb4 Product Selection Permitted Addendum: 09/04/2023 19:05 Co-signature as Attending Physician, Mark Ventura MD I reviewed the patient's care r t provided by the Advanced Practice Provider and agree with the diagnosis and treatment plan. Signatures: Rena Luciano, RN RN Katy Almaraz PA-C PAChristiano sb4 Mark Ventura MD MD rt Corrections: (The following items were deleted from the chart) 08/31 20:17 20:16 ingrown toenail for 1 month now. reports increasing pain, swelling, and sb4 discharge. no reported fevers, no medical history. sb4
--- NOTE | 2023-09-01 19:48 | ER ---
Nurse's Notes [facility] Name: Vickey Mao Age: 23 yrs Sex: Male : 2000 Arrival Date: 09/01/2023 Time: 17:01 Bed 11 Private MD: Diagnosis: ingrown toenail Presentation: 08/31 17:14 Chief complaint: Patient states: LEFT GREAT TOE INFLAMMATION AND DRAINAGE x3 MONTHS. db Coronavirus screen: At this time, the client does not indicate any symptoms associated with coronavirus-19. Ebola Screen: No symptoms or risks identified at this time. Initial Sepsis Screen: Does the patient meet any 2 criteria? No. Patient's initial sepsis screen is negative. Does the patient have a suspected source of infection? No. Patient's initial sepsis screen is negative. Risk Assessment: Do you want to hurt yourself or someone else? Patient reports no desire to harm self or others. Onset of symptoms is unknown. 17:14 Method Of Arrival: Ambulatory db 17:14 Acuity: MAIA 3 db Triage Assessment: 17:16 General: Appears in no apparent distress. uncomfortable, Behavior is calm, cooperative, db appropriate for age. Pain: Complains of pain in left first toe. Historical: - Allergies: 17:16 No Known Allergies; db - PSHx: 17:16 Appendectomy; db - Immunization history:: Adult Immunizations up to date. - Infectious Disease History:: Denies. - Social history:: Smoking status: Patient denies any tobacco usage or history of. Screenin:55 [facility] ED Fall Risk Assessment (Adult) History of falling in the last 3 months, mb9 including since admission No falls in past 3 months (0 pts) Confusion or Disorientation No (0 pts) Intoxicated or Sedated No (0 pts) Impaired Gait No (0 pts) Mobility Assist Device Used No (0 pt) Altered Elimination No (0 pt) Score/Fall Risk Level 0 - 2 = Low Risk Oriented to surroundings, Maintained a safe environment, Educated pt \T\ family on fall prevention, incl call for assistance when getting out of bed. Abuse screen: Denies threats or abuse. Nutritional screening: No deficits noted. Tuberculosis screening: No symptoms or risk factors identified. Assessment: 19:55 Reassessment: Patient appears in no apparent distress at this time. General: Appears in mb9 no apparent distress. Behavior is calm, cooperative. Pain: Complains of pain in left foot. Neuro: Iqbal Agitation-Sedation Scale (RASS): 0 - Alert and Calm Level of Consciousness is awake, alert, obeys commands, Oriented to person, place, time, situation, Appropriate for age. Cardiovascular: Patient's skin is warm and dry. Respiratory: Airway is patent Respiratory effort is even, unlabored, Respiratory pattern is regular, symmetrical. GI: No signs and/or symptoms were reported involving the gastrointestinal system. : No signs and/or symptoms were reported regarding the genitourinary system. EENT: No signs and/or symptoms were reported regarding the EENT system. Derm: Skin is pink, warm \T\ dry. Musculoskeletal: Range of motion: intact in all extremities. Vital Signs: 17:14 BP 122 / 80; Pulse 72; Resp 16; Temp 98; Pulse Ox 100% ; db ED Course: 17:06 Patient arrived in ED. im 17:15 Triage completed. db 17:16 Arm band placed on. db 17:17 Katy Willoughby PA-C [facility]. sb4 17:17 Mark Ventura MD is Attending Physician. sb4 19:38 Lakisha Tony, CLEEV is Primary Nurse. mb9 19:48 Rush Choudhury DPM is Referral Physician. sb4 19:55 Patient has correct armband on for positive identification. mb9 19:55 No provider procedures requiring assistance completed. Patient did not have IV access mb9 during this emergency room visit. Administered Medications: No medications were administered Outcome: 19:48 Discharge ordered by MD. sb4 19:56 Discharged to home ambulatory, mb9 19:56 Condition: stable 19:56 Discharge instructions given to patient, Instructed on discharge instructions, follow up and referral plans. Demonstrated understanding of instructions, follow-up care, medications, Prescriptions given X 1, 19:56 Patient left the ED. mb9 Signatures: Rena Luciano RN Katy Dougherty PA-C PA-C sb4 Breneman, Mary Beth, CLEVE RN mb9 Baylee Fuentes im Corrections: (The following items were deleted from the chart) 19:41 19:40 Reassessment: called from lobby, no answer mb9 mb9
[2023-09-01 20:13] VITALS: BP 122/80; TEMP 98; O2SAT 100
== END 2023-09-01 19:56 | disposition home or self-care (01) ==
LOC: ER 17:01
DX: L60.0 Ingrowing nail (principal)
CPT/HCPCS: 99283